=== PATIENT | female | born 1980 | race African-American/Black ===

== ENCOUNTER 2021-05-13 11:44 | Emergency (ER) | payer OTHER ==
[2021-05-13 12:21] VITALS: BP 126/84; PULSE 99; TEMP 97.9; BMI 28.1
== END 2021-05-13 13:31 | disposition home or self-care (01) ==
LOC: JERFT 11:44
DX: Z48.817 Encounter for surgical aftercare following surgery on the skin and subcutaneous tissue (principal)
CPT/HCPCS: 99281-25